=== PATIENT | male | born 1995 | race African-American/Black ===

== ENCOUNTER 2020-06-18 05:28 | Emergency (ER) | payer SELFPAY ==
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
[2020-06-18 05:25] VITALS: BP 127/76; PULSE 80; RESP 22; TEMP 37; O2SAT 100
[2020-06-18] MEDS: TETANUS,DIPHTHERIA,AC PERTUSSIS ADULT (0.5 ML) BOOSTRIX IM (05:41)
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
[2020-06-18 07:01] VITALS: BP 116/76; PULSE 69; RESP 16; TEMP 36.8; O2SAT 97
== END 2020-06-18 07:03 ==
PROVIDERS: Emergency Provider General Practice
DX: S01.81XA Laceration without foreign body of other part of head, initial encounter (principal); Y00.XXXA Assault by blunt object, initial encounter; Z23 Encounter for immunization
CPT/HCPCS: 12013; 70450; 70486; 72125; 90471; 90715; 95864; 99284